=== PATIENT | male | born 1950 | race Caucasian/White ===

== ENCOUNTER 2023-02-15 07:03 | Day surgery (SDC) | payer MEDICARE ==
[2023-02-10 15:49] VITALS: BMI 39.6
[~2023-02-15 07:03] MED LIST: LACTATED RINGERS 1,000 ML IV SCH; LIDOCAINE 1% (10MG/ML) FOR IV START INTRADERMA PRN
[2023-02-15 07:42] VITALS: RESP 16; TEMP 98.1
[2023-02-15] MEDS ORDERED: PROPOFOL 10 MG/ML 20 ML VIAL IV ONE (07:59)
[2023-02-15] MEDS ORDERED: LIDOCAINE 1% INJ 10MG/ML (20 ML MDV) ONE (07:59)
--- NOTE | 2023-02-15 08:06 | P.GSHP ---
History of Present Illness H&P Date: 02/15/23 Chief Complaint: GERD, screening, dysphagia 72-year-old male here for colonoscopy and EGD. Patient has had increasing dysphagia symptoms with mild reflux. No bowel complaints. Last colonoscopy 12- 14 years ago. Past Medical History Past Medical History: Hypertension, Thyroid Disorder History of Any Multi-Drug Resistant Organisms: None Reported Past Surgical History: Tonsillectomy Additional Past Surgical History / Comment(s): colonoscopy Past Anesthesia/Blood Transfusion Reactions: No Reported Reaction Additional Past Anesthesia/Blood Transfusion Reaction / Comment(s): no blood transfusion Smoking Status: Former smoker - Past Family History Mother Family Medical History: Cancer Additional Family Medical History / Comment(s): colon Brother(s) Family Medical History: Cancer Additional Family Medical History / Comment(s): multiple myeloma other brother had prostate cancer Medications and Allergies Home Medications Medication Instructions Recorded Confirmed Type Aspirin 81 mg PO DAILY 02/10/23 02/10/23 History Cholecalciferol (Vitamin D3) 1,000 mcg PO DAILY 02/10/23 02/10/23 History [Vitamin D3] Echinacea 700 mg PO DAILY 02/10/23 02/10/23 History Fluticasone Nasal Norvell [Flonase 2 spray EA NOSTRIL DAILY 02/10/23 02/10/23 History Nasal Norvell] L.acidoph,Paracasei, B.lactis 1 each PO DAILY 02/10/23 02/10/23 History [Probiotic] Levothyroxine Sodium [Synthroid] 50 mcg PO DAILY 02/10/23 02/10/23 History Metoprolol Tartrate 1 tab PO BID 02/10/23 02/10/23 History Milk Thistle Sd Ext/Blessed Th 1 each PO DAILY 02/10/23 02/10/23 History [Milk Thistle 175-120 mg Cap] Montelukast [Singulair] 10 mg PO DAILY 02/10/23 02/15/23 History Mv-Min/Folic/K1/Lycopen/Lutein 1 each PO DAILY 02/10/23 02/10/23 History [Centrum Silver Men Tablet] Tamsulosin [Flomax] 0.4 mg PO DAILY 02/10/23 02/10/23 History Turmeric Root Extract [Turmeric 500 mg PO DAILY 02/10/23 02/10/23 History Curcumin] amLODIPine BES/OLMESARTAN MED 1 each PO DAILY 02/10/23 02/10/23 History [amLODIPine BES/OLMESARTAN MED 10-20 mg] lisinopriL [Zestril] 20 mg PO BID 02/10/23 02/10/23 History Allergies Allergy/AdvReac Type Severity Reaction Status Date / Time Penicillins AdvReac Rash/Hives Verified 02/15/23 07:23 Sulfa (Sulfonamide AdvReac Rash/Hives Verified 02/15/23 07:23 Antibiotics) Surgical - Exam Vital Signs Temp Pulse Resp BP Pulse Ox 98.1 F 85 16 169/83 95 02/15/23 07:26 02/15/23 07:26 02/15/23 07:26 02/15/23 07:26 02/15/23 07:26 Physical exam: General: Well-developed, well-nourished HEENT: Normocephalic, sclerae nonicteric Abdomen: Nontender, nondistended Extremities: No edema Neuro: Alert and oriented Assessment and Plan (1) Colon cancer screening Narrative/Plan: Will proceed with upper and lower endoscopy at this time. Current Visit: Yes Status: Acute Code(s): Z12.11 - ENCOUNTER FOR SCREENING FOR MALIGNANT NEOPLASM OF COLON SNOMED Code(s): 882168162
--- NOTE | 2023-02-15 08:28 | P.PCN ---
Date of Procedure: 02/15/23 Procedure(s) Performed: PREOPERATIVE DIAGNOSIS: GERD, dysphagia, screening POSTOPERATIVE DIAGNOSIS: Gastritis with erosions, rectal polyp, diverticulosis PROCEDURE: 1. EGD with biopsy 2. Colonoscopy with biopsy ANESTHESIA: MAC SURGEON: Igor Prince M.D. SPECIMENS: Antrum, gastric erosions, rectal polyp ENDOSCOPIC PROCEDURE: The patient was on the endoscopy table in the left decubitus position. The Olympus gastroscope was inserted into the oropharynx and passed under direct visualization to the region of the third portion of the duodenum. From that point the scope was slowly withdrawn inspecting all surfaces carefully. There were no neoplastic inflammatory or polypoid lesions throughout the duodenum. The pylorus was widely patent. The stomach was carefully inspected. There was gastritis with multiple small erosions in the prepyloric region. A biopsy took place. A biopsy of the antrum took place to rule out H. pylori. Retroflexion revealed a normal hiatus. The esophagus was then carefully examined. There were no neoplastic inflammatory or polypoid lesions throughout the visualized esophagus. The patient was kept on the endoscopy table in the left decubitus position. The Olympus colonoscope was inserted into the anus and passed under direct visualization to the base of the cecum. The appendiceal orifice was visualized. From that point the scope was slowly withdrawn inspecting all surfaces carefully. There were no neoplastic inflammatory or polypoid lesions throughout the cecum, ascending, transverse, descending, and sigmoid colon. In the rectum a small polyp was seen and removed using the cold biopsy forceps. The remainder of the rectum appeared normal. There was mild scattered diverticulosis. Digital rectal examination was normal. The patient was taken to the recovery room in stable condition per anesthesia guidelines. RECOMMENDATIONS: Await biopsy results. Begin antiacid therapy.
[2023-02-15 08:58] VITALS: BP 150/79; PULSE 70
== END 2023-02-15 09:30 | disposition home or self-care (01) ==
LOC: ORWHC2ENDO 07:03
PROVIDERS: ATTEND Surgery
DX: Z12.11 Encounter for screening for malignant neoplasm of colon (principal); K29.50 Unspecified chronic gastritis without bleeding; B96.81 Helicobacter pylori [H. pylori] as the cause of diseases classified elsewhere; K62.1 Rectal polyp; K21.9 Gastro-esophageal reflux disease without esophagitis; K57.30 Diverticulosis of large intestine without perforation or abscess without bleeding; K25.9 Gastric ulcer, unspecified as acute or chronic, without hemorrhage or perforation; I10 Essential (primary) hypertension; E07.9 Disorder of thyroid, unspecified; Z87.891 Personal history of nicotine dependence; Z80.42 Family history of malignant neoplasm of prostate; Z79.82 Long term (current) use of aspirin; Z79.899 Other long term (current) drug therapy; Z79.890 Hormone replacement therapy; Z88.0 Allergy status to penicillin; Z88.2 Allergy status to sulfonamides
CPT/HCPCS: 88305; 88342; 45380; 43239; J2001; J2704

== ENCOUNTER → 2023-12-16 | Outpatient (CLI) | payer MEDICARE ==
--- NOTE | 2023-12-16 10:25 | FL ---
EXAMINATION TYPE: FL barium swallow DATE OF EXAM: 12/16/2023 CLINICAL INDICATION: 73-year-old male R13.10, dysphagia, difficulty swallowing solids for a year. COMPARISON: None Total fluoroscopy time 1 minute 31 seconds. Total images: 45. Total DAP: 35 mGycm2. FINDINGS: The swallowing mechanism is normal . There is anterior endplate spondylosis at C5-C6 which causes mil d impression along the back wall of the cervical esophagus. No obstruction. Patient indicates the lev el of sticking sensation to be near the sternal notch, slightly lower than this cervical spurring. The thoracic portion has a normal course and caliber. There is intermittent slight delay in complete clearance of contrast from the distal esophagus but without any significant tertiary peristaltic wave s. The mucosa is normal and no persistent filling defect is encountered. There is a tiny sliding hiatal hernia demonstrated. No gastroesophageal reflux seen during the course of the exam. IMPRESSION: 1. The patient describes the sticking sensation near the level of the sternal notch. The patient has anterior endplate spurs from the cervical spine at the C5-C6 level which is located slightly higher. The spurring causes mild impression along the back wall of the cervical esophagus without obstruction . Unclear if this is contributing to some of the patient's symptoms. 2. Mild distal esophageal dysmotility. 3. Tiny sliding hiatal hernia. 4. Otherwise, no stricture or other specific abnormality seen. [facility], , 12/16/2023 10:23 AM
== END | disposition home or self-care (01) ==
LOC: RADFLMAIN 07:44
PROVIDERS: ATTEND Otolaryngology
DX: R13.10 Dysphagia, unspecified
CPT/HCPCS: 74220